=== PATIENT | male | born 1995 | race Asian ===

== ENCOUNTER 2017-05-06 01:19 | Inpatient (IN) | payer OTHER ==
[~2017-05-06] VITALS: Ht 170.2 cm; Wt 44.9 kg
[2017-05-06] VITALS (7 sets, daily range): BP systolic 90–115
[2017-05-06] MEDS ORDERED: ACETAMINOPHEN 650 MG SUPP.RECT RC ONE (02:00)
[2017-05-06] MEDS ORDERED: NACL 0.9% 1,000 ML IV ONE (02:00)
[2017-05-06] MEDS ORDERED: IBUPROFEN 800 MG TABLET PO ONE (02:00)
[2017-05-06 02:05] LABS: HEMATOCRIT 38.6 % (36-54); HEMOGLOBIN 13.1 g/dL (14.0-18.0); MEAN CORPUSCULAR HEMOGLOBIN 32 pg (27-31); MEAN CORPUSCULAR HGB CONC 34 % (32-36); MEAN CORPUSCULAR VOLUME 92 fL (79.0-98.0); PLATELET COUNT (AUTO) 188 K/uL (130-430); RED BLOOD CELL COUNT(AUTO) 4.18 MIL/uL (4.2-6.2); RED CELL DISTRIBUTION WIDTH 11.3 % (9.0-15.0); WHITE BLOOD COUNT (AUTO) 12.1 K/uL (4.8-10.8)
[2017-05-06 02:08] LABS: BILIRUBIN,URINE NEGATIVE (NEGATIVE); BLOOD, URINE NEGATIVE (NEGATIVE); CLARITY/URINE CLEAR (CLEAR); COLOR,URINE YELLOW (YELLOW); GLUCOSE,URINE NEGATIVE (NEGATIVE); KETONES,URINE NEGATIVE (NEGATIVE); LEUKOCYTE ESTERASE ,URINE NEGATIVE (NEGATIVE); NITRITE, URINE NEGATIVE (NEGATIVE); PROTEIN URINE TRACE (NEGATIVE)
[2017-05-06 02:14] LABS: BACTERIA,URINE FEW /HPF (None Seen); MUCUS,URINE 2+ /LPF (None Seen); RBC,URINE 0-3 /HPF (0-3); WBC,URINE 0-3 /HPF (0-3)
[2017-05-06 02:16] LABS: ANION GAP 8 (5-15); CALCIUM 8.3 mg/dL (8.4-11.0); CHLORIDE 103 mmol/L (98-107); CREATININE 1.23 mg/dL (0.55-1.30); GLUCOSE 130 mg/dL (70-99); SODIUM SERUM 135 mmol/L (136-145); UREA NITROGEN, BLOOD 15 mg/dL (8-21)
[2017-05-06 02:20] LABS: ALANINE AMINOTRANSFERASE 22 U/L (12-78); ALBUMIN 3.8 g/dL (3.4-4.8); ASPARTATE AMINOTRANSFERASE 22 U/L (10-37); CREATINE KINASE, TOTAL 90 U/L (39-308); INR 1.1 (0.80-1.20); PROTHROMBIN TIME 11.8 SECS (9.5-12.5); TOTAL BILIRUBIN 2.2 mg/dL (0.0-1.0); TOTAL PROTEIN, SERUM 7.7 g/dL (6.4-8.3)
[2017-05-06 02:26] LABS: GFR AFRICAN AMERICAN 93 mL/min (>90)
[2017-05-06 02:27] LABS: ALCOHOL, BLOOD < 3 mg/dL (<10); SALICYLATE < 1 mg/dL (3-30)
[2017-05-06 02:28] LABS: BARBITURATE, URINE NEGATIVE (NEG <=200); BENZODIAZEPINE, URINE NEGATIVE (NEG <=150); CANNABINOID, URINE NEGATIVE (NEG <=50); COCAINE, URINE NEGATIVE (NEG <=150); METHAMPHETAMINES SCREEN,URINE NEGATIVE (NEG <=500); OPIATE, URINE NEGATIVE (NEG <=100); PHENCYCLIDINE SCREEN,URINE NEGATIVE (NEG <=25); UR TRICYCLIC ANTIDEPRESSANTS NEGATIVE (NEG <=300); URINE AMPHETAMINE NEGATIVE (NEG <=500); URINE METHADONE NEGATIVE (NEG <=200); URINE OXYCODONE SCREEN NEGATIVE (NEG <=100); URINE PROPOXYPHENE SCREEN NEGATIVE (NEG <=300)
[2017-05-06 02:41] LABS: ACETAMINOPHEN < 1 ug/mL (1-30)
[2017-05-06 02:48] LABS: BAND % (MANUAL) 3 % (0-6); LYMPHOCYTES % (MANUAL) 14 % (20-46)
[2017-05-06 02:49] LABS: BASOPHILS % (MANUAL) 0 % (0-2); EOSINOPHILS % (MANUAL) 0 % (0-7); MONOCYTES % (MANUAL) 3 % (0-11)
[2017-05-06] MEDS ORDERED: cefTRIAXone 1 GM in D5W 50 ML IV ONE (03:15)
[2017-05-06] MEDS ORDERED: cefTRIAXone 1 GM VIAL ONE (03:23)
[2017-05-06 04:16] LABS: ABG TOTAL HEMOGLOBIN 13.1 G/dL (12.0-18.0); BLOOD GAS COHb% 0.1 % (0.5-1.5); BLOOD GAS HHB 3.3 % (0.0-6.0); BLOOD GAS PH 7.438 (7.350-7.450)
[2017-05-06] MEDS ORDERED: PIPERACILLIN/TAZO 3.375 GM in NS 50 ML IV ONE (04:30)
[2017-05-06] MEDS ORDERED: PIPERACILLIN/TAZOBACTAM 3.375 GM/VIAL (ZOSYN) IV ONE (04:54)
[2017-05-06] MEDS: NACL 0.9% 1,000 ML IV SCH ×2 (05:04→17:38)
[2017-05-06] MEDS ORDERED: MORPHINE 2 MG/ML INJ. SYRINGE IVP PRN (10:15)
[2017-05-06] MEDS ORDERED: ONDANSETRON HCL 4 MG/2 ML VIAL IVP PRN (10:15)
[2017-05-06] MEDS ORDERED: MAGNESIUM SULFATE 50 ML IV PRN (10:15)
[2017-05-06] MEDS ORDERED: LORazepam 2 MG/ML VIAL IVP PRN (10:15)
[2017-05-06] MEDS ORDERED: ZOLPIDEM TARTRATE 5 MG TABLET PO PRN (10:15)
[2017-05-06] MEDS ORDERED: DOCUSATE SODIUM 100 MG CAPSULE PO PRN (10:15)
[2017-05-06] MEDS: POTASSIUM CHLORIDE 10 MEQ TAB.PRT.SR PO PRN (12:35)
[2017-05-06] MEDS: PIPERACILLIN/TAZO 3.375 GM in NS 50 ML IV SCH ×3 (12:35→23:27)
[2017-05-06] MEDS: ALBUTEROL SULFATE 0.083% 2.5 MG/3 ML VIAL.NEB INH SCH ×2 (13:32→19:40)
[2017-05-06] MEDS ORDERED: ALBUTEROL MDI INHALATION 8 GM INH INH SCH (15:00)
[2017-05-07] VITALS: BP_SYST 102
[2017-05-07] MEDS: ALBUTEROL SULFATE 0.083% 2.5 MG/3 ML VIAL.NEB INH SCH ×4 (01:00→20:24)
[2017-05-07 04:00] VITALS: BP_SYST 105
[2017-05-07] MEDS: PIPERACILLIN/TAZO 3.375 GM in NS 50 ML IV SCH ×2 (05:17→11:19)
[2017-05-07 06:14] LABS: CALCIUM 8.1 mg/dL (8.4-11.0); CREATININE 1.02 mg/dL (0.55-1.30); POTASSIUM 3.8 mmol/L (3.5-5.1)
[2017-05-07 06:19] LABS: BASOPHILS % (AUTO) 0.2 % (0.0-2.0); EOSINOPHILS # (AUTO) 0.1 K/uL (0.0-0.4); EOSINOPHILS % (AUTO) 0.4 % (0.0-4.0); HEMATOCRIT 33.5 % (36-54); HEMOGLOBIN 11.5 g/dL (14.0-18.0); LYMPHOCYTES # (AUTO) 1.4 K/uL (1.0-5.5); LYMPHOCYTES % (AUTO) 8.9 % (20.5-51.5); MEAN CORPUSCULAR HEMOGLOBIN 32 pg (27-31); MEAN CORPUSCULAR HGB CONC 34 % (32-36); MEAN CORPUSCULAR VOLUME 93 fL (79.0-98.0); MONOCYTES # (AUTO) 0.8 K/uL (0.0-1.0); MONOCYTES % (AUTO) 4.8 % (1.7-9.3); NEUTROPHILS # (AUTO) 13.9 K/uL (1.8-7.7); NEUTROPHILS % (AUTO) 85.7 % (40.0-70.0); PLATELET COUNT (AUTO) 167 K/uL (130-430); RED CELL DISTRIBUTION WIDTH 11.6 % (9.0-15.0); WHITE BLOOD COUNT (AUTO) 16.2 K/uL (4.8-10.8)
[2017-05-07] MEDS: NACL 0.9% 1,000 ML IV SCH (07:43)
[2017-05-07 08:46] VITALS: BP_SYST 107
[2017-05-07] MEDS: ACETAMINOPHEN 325 MG TABLET PO PRN ×2 (08:46→20:24)
[2017-05-07] MEDS: VANCOMYCIN HCL 500 MG in NS 100 ML IV SCH ×2 (12:07→22:54)
[2017-05-07 13:00] VITALS: BP_SYST 104
[2017-05-07 16:59] VITALS: BP_SYST 110
[2017-05-07] MEDS: cefTRIAXone 1 GM in D5W 50 ML IV SCH (17:30)
[2017-05-07] MEDS: AZITHROMYCIN 500 MG in NS 250 ML IV SCH (17:55)
[2017-05-07 20:00] VITALS: BP_SYST 116
[2017-05-08] VITALS (7 sets, daily range): BP systolic 101–111
[2017-05-08] MEDS: ALBUTEROL SULFATE 0.083% 2.5 MG/3 ML VIAL.NEB INH SCH ×5 (01:29→21:59)
[2017-05-08 06:31] LABS: BASOPHILS % (AUTO) 0.2 % (0.0-2.0); EOSINOPHILS # (AUTO) 0.1 K/uL (0.0-0.4); EOSINOPHILS % (AUTO) 0.7 % (0.0-4.0); HEMOGLOBIN 11.5 g/dL (14.0-18.0); LYMPHOCYTES # (AUTO) 1.8 K/uL (1.0-5.5); LYMPHOCYTES % (AUTO) 17.3 % (20.5-51.5); MEAN CORPUSCULAR HEMOGLOBIN 32 pg (27-31); MEAN CORPUSCULAR HGB CONC 34 % (32-36); MEAN CORPUSCULAR VOLUME 93 fL (79.0-98.0); MONOCYTES # (AUTO) 0.7 K/uL (0.0-1.0); MONOCYTES % (AUTO) 6.7 % (1.7-9.3); NEUTROPHILS # (AUTO) 7.9 K/uL (1.8-7.7); NEUTROPHILS % (AUTO) 75.1 % (40.0-70.0); PLATELET COUNT (AUTO) 183 K/uL (130-430); RED BLOOD CELL COUNT(AUTO) 3.65 MIL/uL (4.2-6.2); RED CELL DISTRIBUTION WIDTH 11.8 % (9.0-15.0); WHITE BLOOD COUNT (AUTO) 10.5 K/uL (4.8-10.8)
[2017-05-08 06:34] LABS: CALCIUM 8.3 mg/dL (8.4-11.0); CREATININE 0.88 mg/dL (0.55-1.30); POTASSIUM 3.2 mmol/L (3.5-5.1)
[2017-05-08] MEDS: POTASSIUM CHLORIDE 10 MEQ TAB.PRT.SR PO PRN (09:01)
[2017-05-08] MEDS: cefTRIAXone 1 GM in D5W 50 ML IV SCH (17:06)
[2017-05-08] MEDS: AZITHROMYCIN 500 MG in NS 250 ML IV SCH (18:17)
[2017-05-09] VITALS: BP_SYST 96
[2017-05-09 04:15] VITALS: BP_SYST 96
[2017-05-09 08:09] LABS: BASOPHILS # (AUTO) 0.1 K/uL (0.0-0.2); BASOPHILS % (AUTO) 1.1 % (0.0-2.0); EOSINOPHILS # (AUTO) 0.1 K/uL (0.0-0.4); EOSINOPHILS % (AUTO) 1.1 % (0.0-4.0); HEMATOCRIT 41.6 % (36-54); HEMOGLOBIN 13.5 g/dL (14.0-18.0); LYMPHOCYTES # (AUTO) 1.7 K/uL (1.0-5.5); LYMPHOCYTES % (AUTO) 16.8 % (20.5-51.5); MEAN CORPUSCULAR HEMOGLOBIN 30 pg (27-31); MEAN CORPUSCULAR HGB CONC 32 % (32-36); MEAN CORPUSCULAR VOLUME 93 fL (79.0-98.0); MONOCYTES # (AUTO) 0.5 K/uL (0.0-1.0); NEUTROPHILS # (AUTO) 7.5 K/uL (1.8-7.7); PLATELET COUNT (AUTO) 304 K/uL (130-430); RED BLOOD CELL COUNT(AUTO) 4.46 MIL/uL (4.2-6.2); RED CELL DISTRIBUTION WIDTH 11.6 % (9.0-15.0); WHITE BLOOD COUNT (AUTO) 9.9 K/uL (4.8-10.8)
[2017-05-09 08:14] VITALS: BP_SYST 110
[2017-05-09 08:25] LABS: CALCIUM 9.6 mg/dL (8.4-11.0); CREATININE 0.9 mg/dL (0.55-1.30); POTASSIUM 3.9 mmol/L (3.5-5.1)
[2017-05-09] MEDS: ALBUTEROL SULFATE 0.083% 2.5 MG/3 ML VIAL.NEB INH SCH (09:15)
[2017-05-09] MEDS ORDERED: AZIT250T PO (09:43)
[2017-05-09 10:01] VITALS: BP_SYST 106
== END 2017-05-09 11:15 | disposition home or self-care (01) | DRG 871 ==
LOC: SED 01:19 → STU 03:54
PROVIDERS: ADMIT General Practice; ATTEND General Practice
DX: A41.9 Sepsis, unspecified organism (principal); J18.1 Lobar pneumonia, unspecified organism; E86.0 Dehydration; E87.6 Hypokalemia; K21.9 Gastro-esophageal reflux disease without esophagitis; Z83.6 Family history of other diseases of the respiratory system
CPT/HCPCS: 36415; 36600; 71010; 71250-TC; 80048; 80053; 80307; 81000-TC; 82550-TC; 82803-TC; 83605; 83735-TC; 84484; 85007; 85025; 85027; 85610-TC; 85730-TC; 86710; 87040-TC; 87070-TC; 87205-TC; 93005; 94640; 96365; 99285; G0480; G0481; G0482; J0456; J0696; J2543; J3370; J7030; J7050; J7060